=== PATIENT | female | born 1995 | race Two or more races ===

== ENCOUNTER 2023-08-07 10:16 | Emergency (ER) | payer OTHER ==
[~2023-08-07] VITALS: Ht 154.9 cm; Wt 61.2 kg
[2023-08-07 15:36] LABS: HEMATOCRIT 42.2 % (36.0-45.00); HEMOGLOBIN 14.3 g/dL (12.0-15.00); MEAN CORPUSCULAR HEMOGLOBIN 29.8 pg (27.00-32.0); MEAN CORPUSCULAR HGB CONC 33.8 g/dl (32.0-36.0); PLATELET COUNT 191 K/uL (150-450); RED CELL DISTRIBUTION WIDTH 13.2 % (11.5-14.5)
[2023-08-07 16:08] LABS: ALBUMIN 3.9 gm/dL (3.4-5.0); BILIRUBIN TOTAL 0.21 mg/dL (0.3-1.2); CALCIUM 8.8 mg/dL (8.5-10.1); CREATININE SERUM 0.75 mg/dL (0.55-1.02); GFR 93.41; GLOBULINA 4.1 G/DL (2.4-3.5); POTASSIUM 3.32 mEq/L (3.5-5.1)
[2023-08-07 16:10] LABS: URINE APPEARANCE Cloudy; URINE BILIRRUBIN Negative (NEGATIVE); URINE BLOOD Trace; URINE COLOR Yellow; URINE GLUCOSE Negative (NEGATIVE); URINE LEUKOCYTE Negative; URINE NITRATE Negative; URINE PROTEIN 30 (NEGATIVE)
[2023-08-07 16:13] LABS: URINE BACTERIA 5641.9 uL (0.0-1933); URINE EPITHELIAL CELLS 108.5 uL (0.0-38.8); URINE RBC 42.2 uL (0.0-20.8); URINE WBC 22.8 uL (0.0-23.2)
== END 2023-08-07 18:37 | disposition home or self-care (01) ==
LOC: ER 10:17
PROVIDERS: General Practice
DX: J10.1 Influenza due to other identified influenza virus with other respiratory manifestations (principal); Z20.822 Contact with and (suspected) exposure to COVID-19
CPT/HCPCS: 36415; 96365; 96372; 99284; J0696; J2405; J3490